=== PATIENT | female | born 1970 ===

== ENCOUNTER 2025-05-11 16:36 | Inpatient (IN) | payer OTHER, SELFPAY ==
--- OUTSIDE RECORDS SUMMARY | 2025-05-11 17:06 | XMS_ITS | Encounter Summary ---
Author Organization [facility] Address [address] [place] [address] Care Team Providers Care Farmer General Name Role Phone Bijan Vasquez DO Primary Care Provider [phone] Encounter Details Date Type Department Care Team (Late st Contact Info) Description 04/24/2022 Lab Requisition [address] [id number] Shirley Daniel NP [address] [place] [address] Bipolar disorder, current episode manic severe with psychotic features (HCC) Social History Tobacco Use Types Packs/Day Years Used Date Smoking Tobacco: Never Assessed Comments Unknown Sex and Gender Information Value Date Recorded Sex Assigned at Not on file Legal Sex Female 9:49 AM EDT Gender Identity Not on file Sexual Orientation Not on file documented as of this encounter Plan of Treatment Not on file documented as of this encounter Procedures Procedure Name Priority Date/Time Associated Diagnosis Comments TSH WITHOUT REFLEX Routine 04/24/2022 6: 50 AM EDT LIPID PROFILE, REFLEX DIRECT LDL Routine 04/24/2022 6:50 AM EDT MANUAL DIFFERENTIAL Routine 04/24/2022 6 :50 AM EDT Bipolar disorder, current episode manic severe with psychotic features (HCC) [ICD-10-CM] CBC AND AUTO DIFFERENTIAL Routine 04/24/2022 6:50 AM EDT Bipolar disorder, current episode manic severe with psychotic features (HCC) [ICD-10-CM] HEMOGLOBIN A1C Routine 04/24/2022 6:50 AM EDT VALPROIC ACID LEVEL Routine 04/24/2022 6 :50 AM EDT COMPREHENSIVE METABOLIC PANEL Routine 04/24/2022 6:50 AM EDT documented in this encounter Results * (ABNORMAL) Manual Differential (04/24/2022 6:50 AM EDT) [facility] WBC 5.7 10*3/ L 04/24/2022 1:55 PM EDT [facility] Neut % 31(L) 40 - 85 % 04/24/2022 1:55 PM EDT [facility] Lymph % 62(H) 15 - 45 % 04/24/2022 1:55 PM EDT [facility] [place] % 5 0 - 12 % 04/24/2022 1:55 PM EDT [facility] Eos % 2 0 - 7 % 04/24/2022 1:55 PM EDT [facility] Total Cells Count 100 04/24/2022 1:55 PM EDT [facility] RBC Morphology Normal Normal 04/24/2022 1:55 PM EDT [facility] Platelet Estimate Normal Normal 04/24/2022 1:55 PM EDT [facility] Blood specimen (specimen) Venipuncture / Unknown 04/24/2022 6:50 AM EDT 04/24/2022 9:45 AM EDT us Shirley Daniel [employer] LAB BLOOD ORDERABLES Final Re sult [facility] [address] [place] [address] * (ABNORMAL) Lipid profile, reflex direct LDL (04/24/2022 6:50 AM EDT) [facility] Cholesterol 176 <200 mg/dL 04/24/2022 10:57 AM EDT [facility] Triglycerides 98 <150 mg/dL 04/24/2022 10:57 AM EDT [facility] HDL 51.6(L) >=60.0 mg/dL 04/24/2022 10:57 AM EDT [facility] LDL Calculated 105(H) 0 - 100 mg/dL 04/24/2022 10:57 AM EDT [facility] Cardiac Risk Factor 3.4 0.0 - 4.4 04/24/2022 10:57 AM EDT [facility] Blood specimen (specimen) Venipuncture / Unknown 04/24/2022 6:50 AM EDT 04/24/2022 9:45 AM EDT Narrative [facility] - 04/24/2022 10:57 AM EDT Cardiac Risk Factor: Males Females 2x Average Risk 9.6 7.1 3x Average Risk 23.4 11.0 Reference range has been changed as of 05/08/2020. Private Practice [employer] LAB BLOOD ORDERABLES Final Re sult Performing Organization Address [facility] Co de Phone Number [facility] [address] [place] [phone] * Hemoglobin A1c (04/24/2022 6:50 AM EDT) Hemoglobin A1C 5.4 4.0 - 6.0 % 04/24/2022 12:48 PM EDT [facility] Estimated Average Glucose eAG 108.3 85.0 - 126.0 mg/dL 04/24/2022 12:48 PM EDT [facility] Blood specimen (specimen) Venipuncture / Unknown 04/24/2022 6:50 AM EDT 04/24/2022 9:45 AM EDT Private Practice [employer] LAB BLOOD ORDERABLES Final Re sult Performing Organization Address [facility] Co de Phone Number [facility] [address] [place] [phone] * TSH Without Reflex (04/24/2022 6:50 AM EDT) TSH 2.207 0.340 - 4.820 uIU/mL 04/24/2022 10:57 AM EDT [facility] Blood specimen (specimen) Venipuncture / Unknown 04/24/2022 6:50 AM EDT 04/24/2022 9:45 AM EDT Narrative [facility] - 04/24/2022 10:57 AM EDT Reference range has been changed as of 05/08/2020. us Shirley Nagycoby [employer] LAB BLOOD ORDERABLES Final Re sult [facility] [address] [place] [address] * Comprehensive metabolic panel (04/24/2022 6:50 AM EDT) Sodium 142 136 - 145 mEq/L 04/24/2022 10:57 AM EDT [facility] Potassium 4.8 3.5 - 5.1 mEq/L 04/24/2022 10:57 AM EDT [facility] Chloride 106 98 - 107 mEq/L 04/24/2022 10:57 AM EDT [facility] CO2 31 20 - 31 mEq/L 04/24/2022 10:57 AM EDT [facility] Anion Gap 5 4 - 15 mEq/L 04/24/2022 10:57 AM EDT [facility] Glucose 74 70 - 100 mg/dL 04/24/2022 10:57 AM EDT [facility] Creatinine 0.80 0.50 - 1.00 mg/dL 04/24/2022 10:57 AM EDT [facility] eGFR (Female) >60 60 - 115 mL/min 04/24/2022 10:57 AM EDT [facility] BUN 20 9 - 23 mg/dL 04/24/2022 10:57 AM EDT [facility] Calcium 9.6 8.7 - 10.4 mg/dL 04/24/2022 10:57 AM EDT [facility] Total Protein 5.9 5.7 - 8.2 g/dL 04/24/2022 10:57 AM EDT [facility] Albumin 3.9 3.2 - 4.8 g/dL 04/24/2022 10:57 AM EDT [facility] A/G Ratio 2.0 1.0 - 2.3 04/24/2022 10:57 AM EDT [facility] Total Bilirubin 0.2 0.2 - 1.0 mg/dL 04/24/2022 10:57 AM EDT [facility] AST 22 13 - 40 U/L 04/24/2022 10:57 AM EDT [facility] Alkaline Phosphatase 75 46 - 116 IU/L 04/24/2022 10:57 AM EDT [facility] ALT 21 7 - 40 U/L 04/24/2022 10:57 AM EDT [facility] Blood specimen (specimen) Venipuncture / Unknown 04/24/2022 6:50 AM EDT 04/24/2022 9:45 AM EDT Narrative [facility] - 04/24/2022 10:57 AM EDT Reference range has been changed as of 05/08/2020. us Shirley Nagyx [employer] LAB BLOOD ORDERABLES Final Re sult Performing Organization Address City/[facility]/ZIP Co de Phone Number [facility] [address] [place] [address] * Valproic Acid Level (04/24/2022 6:50 AM EDT) Valproic Acid 70.6 50.0 - 100.0 ug/mL 04/24/2022 2:52 PM EDT [facility] Blood specimen (specimen) Venipuncture / Unknown 04/24/2022 6:50 AM EDT 04/24/2022 9:45 AM EDT [facility] - 04/24/2022 2:52 PM EDT Reference range has been changed as of 05/08/2020. us Melady Genereux [employer] LAB BLOOD ORDERABLES Final Re sult [facility] [address] [place] [address] * CBC and Auto Differential (04/24/2022 6:50 AM EDT) WBC 5.7 4.8 - 11.2 10*3/ L 04/24/2022 10:52 AM EDT [facility] RBC 4.03 3.60 - 5.40 10*6/ L 04/24/2022 10:52 AM EDT [facility] HGB 12.4 12.0 - 15.8 g/dL 04/24/2022 10:52 AM EDT [facility] HCT 37.3 36.0 - 48.0 % 04/24/2022 10:52 AM EDT [facility] MCV 92.6 82.0 - 98.0 fL 04/24/2022 10:52 AM EDT [facility] MCH 30.8 27.0 - 35.0 pg 04/24/2022 10:52 AM EDT [facility] MCHC 33.2 32.0 - 37.0 g/dL 04/24/2022 10:52 AM EDT [facility] RDW 13.6 12.0 - 15.0 % 04/24/2022 10:52 AM EDT [facility] PLT 186 150 - 400 10*3/ L 04/24/2022 10:52 AM EDT [facility] MPV 9.4 7.0 - 14.0 fL 04/24/2022 10:52 AM EDT [facility] NRBC% 0 0 /100 WBC /100 WBC 04/24/2022 10:52 AM EDT [facility] Add Manual Diff Yes Per Protocol 04/24/2022 10:52 AM EDT [facility] Blood specimen (specimen) Venipuncture / Unknown 04/24/2022 6:50 AM EDT 04/24/2022 9:45 AM EDT us Shirley Daniel [employer] LAB BLOOD ORDERABLES Final Re sult [facility] [address] [place] [address] documented in this encounter Visit Diagnoses Diagnosis Bipolar disorder, current episode manic severe with psychotic features (HCC) documented in this encounter Care Teams Farmer General Relationship Specialty Start Date End Date Bijan Vasquez DO [address] [place] [address] PCP - General Psychiatry 03/24/22 documented as of this encounter
--- OUTSIDE RECORDS SUMMARY | 2025-05-11 17:06 | XMS_ITS | Patient Health Record ---
Author Organization [facility] [address] [place] [address] Location Address [address] [place] [id number] Care Team Providers Care Theater Teacher Name Role Phone Tej GALARZA, [facility] Primary Care Provider Unava ilable Reason For Referral No Information Problems Problem Type SNOMED Code ICD Code Onset Dates Problem Status W/U Status Risk Notes Problem Migraine with aura (5405819) Migraine with aura (346.0) 04/24/2015 Active confirmed Problem Seizure (36355584) Unspecified convulsions (R56.9) 04/24/2015 Active confirmed Plan Of Treatment No Information Insurance Providers Payer Name Payer Address Payer Phone Subscriber Number Group Number Insured Name Patient Relationship to Insured Coverage Start Date Coverage End Date [facility]/ [facility] [address] [address] [place] [phone] [id number] Fabiola Peck Self - patient is the insured
--- OUTSIDE RECORDS SUMMARY | 2025-05-11 17:06 | XMS_ITS | Encounter Summary ---
Author Organization [facility] Address [address] [place] [address] Care Team Providers Care Oceanographer Assistant Name Role Phone Bijan Vasquez DO Primary Care Provider Encounter Details Date Type Department Care Team (Late st Contact Info) Description 03/24/2022 Lab Requisition [address] [phone] Bijan Vasquez DO [address] [place] [id number] Illness, unspecified Social History Tobacco Use Types Packs/Day Years [...] Procedure Name Priority Date/Time Associated Diagnosis Comments MANUAL DIFFERENTIAL Routine 03/24/2022 6:25 AM EDT Illness, unspecified CBC AND AUTO DIFFERENTIAL Routine 03/24/2022 6:25 AM EDT Illness, unspecified VALPROIC ACID LEVEL Routine 03/24/2022 6 :25 AM EDT Illness, unspecified COMPREHENSIVE METABOLIC PANEL Routine 03/24/2022 6:25 AM EDT Illness, unspecified documented in this encounter Results * (ABNORMAL) Manual Differential (03/24/2022 6:25 AM EDT) WBC 6.5 10*3/ L 03/24/2022 1:16 PM EDT [facility] Neut % 30(L) 40 - 85 % 03/24/2022 1:16 PM EDT [facility] Lymph % 62(H) 15 - 45 % 03/24/2022 1:16 PM EDT [facility] [place] % 8 0 - 12 % 03/24/2022 1:16 PM EDT [facility] Total Cells Count 100 03/24/2022 1:16 PM EDT [facility] RBC Morphology Normal Normal 03/24/2022 1:16 PM EDT [facility] Platelet Estimate Normal Normal 03/24/2022 1:16 PM EDT [facility] Blood specimen (specimen) Venipuncture / Unknown 03/24/2022 6:25 AM EDT 03/24/2022 9:50 AM EDT us Bijan Vasquez DO LAB BLOOD ORDERABLES Final R esult Performing Organization Address City/State/[facility] Co de Phone Number [facility] [address] [place] [phone] * CBC and Auto Differential (03/24/2022 6:25 AM EDT) WBC 6.5 4.8 - 11.2 10*3/ L 03/24/2022 10:27 AM EDT [facility] RBC 4.35 3.60 - 5.40 10*6/ L 03/24/2022 10:27 AM EDT [facility] HGB 13.7 12.0 - 15.8 g/dL 03/24/2022 10:27 AM EDT [facility] HCT 40.5 36.0 - 48.0 % 03/24/2022 10:27 AM EDT [facility] MCV 93.1 82.0 - 98.0 fL 03/24/2022 10:27 AM EDT [facility] MCH 31.4 27.0 - 35.0 pg 03/24/2022 10:27 AM EDT [facility] MCHC 33.8 32.0 - 37.0 g/dL 03/24/2022 10:27 AM EDT [facility] RDW 14.1 12.0 - 15.0 % 03/24/2022 10:27 AM EDT [facility] PLT 238 150 - 400 10*3/ L 03/24/2022 10:27 AM EDT [facility] MPV 8.4 7.0 - 14.0 fL 03/24/2022 10:27 AM EDT [facility] NRBC% 0 0 /100 WBC /100 WBC 03/24/2022 10:27 AM EDT [facility] Add Manual Diff Yes Per Protocol 03/24/2022 10:27 AM EDT [facility] Blood specimen (specimen) Venipuncture / Unknown 03/24/2022 6:25 AM EDT 03/24/2022 9:50 AM EDT [facility] Arminda Rosedale DO LAB BLOOD ORDERABLES Final R [facility] Performing Organization Address [facility] de Phone Number [facility] [address] [place] [phone] * Valproic Acid Level (03/24/2022 6:25 AM EDT) Valproic Acid 77.7 50.0 - 100.0 ug/mL 03/24/2022 10:56 AM EDT [facility] Blood specimen (specimen) Venipuncture / Unknown 03/24/2022 6:25 AM EDT 03/24/2022 9:50 AM EDT Narrative [facility] - 03/24/2022 10:56 AM EDT Reference range has been changed as of 05/08/2020. [facility] LAB BLOOD ORDERABLES Final R [facility] Performing Organization Address City/[facility] Co de Phone Number [facility] [address] [place] [phone] * (ABNORMAL) Comprehensive metabolic panel (03/24/2022 6:25 AM EDT) Sodium 144 136 - 145 mEq/L [facility]2022 [facility] Potassium 4.7 3.5 - 5.1 mEq/L 03/24/2022 10:56 AM EDT [facility] Chloride 109(H) 98 - 107 mEq/L 03/24/2022 10:56 AM EDT [facility] CO2 30 20 - 31 mEq/L 03/24/2022 10:56 AM [facility] Anion Gap 5 4 - 15 mEq/L 03/24/2022 10:56 AM EDT [facility] Glucose 80 70 - 100 mg/dL 03/24/2022 10:56 AM T [facility] Creatinine 0.72 0.50 - 1.00 mg/dL 03/24/2022 10:56 AM T [facility] eGFR >60 60 - 115 mL/min 03/24/2022 10:56 AM [facility] BUN 18 9 - 23 mg/dL 03/24/2022 10:56 AM T [facility] Calcium 9.5 8.7 - 10.4 mg/dL 03/24/2022 10:56 AM T [facility] Total Protein 6.1 5.7 - 8.2 g/dL 03/24/2022 10:56 AM T [facility] Albumin 3.9 3.2 - 4.8 g/dL 03/24/2022 10:56 AM [facility] A/G Ratio 1.8 1.0 - 2.3 03/24/2022 10:56 AM T [facility] Total Bilirubin 0.2 0.2 - 1.0 mg/dL 03/24/2022 10:56 AM [facility] AST 30 13 - 40 U/L 03/24/2022 10:56 AM T [facility] Alkaline Phosphatase 77 46 - 116 IU/L 03/24/2022 10:56 AM T [facility] ALT 31 7 - 40 U/L 03/24/2022 10:56 AM [facility] Blood specimen (specimen) Venipuncture / Unknown 03/24/2022 6:25 AM EDT 03/24/2022 9:50 AM EDT Narrative [facility] - 03/24/2022 10:56 AM EDT Reference range has been changed as of 05/08/2020. Bijan Vasquez DO LAB BLOOD ORDERABLES Final R esult [facility] [address] [place] [address] documented in this encounter Visit Diagnoses Diagnosis Illness, unspecified documented in this encounter Care Teams Oceanographer Assistant Relationship Specialty Start Date End Date Bijan Vasquez DO [address] [place] [phone] PCP - General Psychiatry 03/24/22 documented as of this encounter
--- OUTSIDE RECORDS SUMMARY | 2025-05-11 17:06 | XMS_ITS | Clinical Summary ---
Author Organization [facility] Address [address] [facility] [address] [place] [address] Care Team Providers Care Crisis Intervention Specialist Name Role Phone Osman Jeffery MD Primary Care Provider Allergies No known active allergies Medications No known medications Active Problems No known active problems Encounters Date Type Department Care Team Description 03/18/2025 3:59 AM EDT - 03/18/2025 6:58 AM EDT Emergency [facility] Emergency Department [address] [place] [address] Génesis Smith MD Food poisoning (Primary Dx); Nausea vomiting and diarrhea Discharge Disposition: Home or self care from Last 3 Months Social History Tobacco Use Types Packs/Day Years Used Date Smoking Tobacco: Every Day Cigarettes Smokeless Tobacco: Never Tobacco Cessation:Ready to Q uit: Not Asked; Counseling Given: Not Answered Utilities Answer Date Recorded In the past 12 months has [email or web address], gas, oil, or water [employer] threatened to shut off services in your home? Patient declined 03/18/2025 Overall Financial Resource Strain (CARDIA) Answe r Date Recorded How hard is it for you to pa y for the very basics like food, housing, medical care, and heating? Patient declined 03/18/2025 Hunger Vital Sign Answer Date Recorded Within the past 12 months, y ou worried that your food would run out before you got the money to buy more. Patient declined Ran Out of Food in the Last Year Not on file 03/18/2025 PRAPARE - Transportation Answer Date Re corded In the past 12 months, has l ack of transportation kept you from medical appointments or from getting medications? Patient declined 03/18/2025 In the past 12 months, has l ack of transportation kept you from meetings, work, or from getting things needed for daily living? Patient declined 03/18/2025 Housing Stability Vital Sign Answer Arsh e Recorded Unable to Pay for Housing in the Last Year Not o n file 03/18/2025 Number of Times Moved in the Last Year Not on fi le 03/18/2025 At any time in the past 12 m [facility], were you homeless or living in a correction (including now)? Patient declined 03/18/2025 Comments Unknown Sex and Gender Information Value Date Recorded Sex Assigned at Female 08/15/2024 3:57 AM EST Legal Sex Female 3:51 AM EST Gender Identity Female 08/15/2024 3:57 AM EST Sexual Orientation Not on file Last Filed Vital Signs Vital Sign Reading Time Taken Comments Blood Pressure 99/63 03/18/2025 1:16 AM EDT Pulse 82 03/18/2025 1:16 AM EDT Temperature 35.9 C (96.6 F) 03/18/2025 1:16 AM EDT Respiratory Rate 16 03/18/2025 1:16 AM EDT Oxygen Saturation 97% 03/18/2025 1:16 AM EDT Inhaled Oxygen Concentration - - Weight 54.4 kg (120 lb) 08/15/2024 4:05 AM EST Height 165.1 cm (5' 5 ) 08/15/2024 4:05 AM EST Body Mass Index 19.97 08/15/2024 4:05 AM EST Plan of Treatment Health Maintenance Due Date Last Done Comments CT Colonography 1969 Colonoscopy 1969 Colorectal Cancer Screening 1969 FIT-DNA 1969 FIT 1969 FOBT 1969 HIV Screening 1969 Sigmoidoscopy 1969 Tobacco Cessation Counseling 1969 MMR Vaccines (1 of 1 - Stand gela series) 1970 Hepatitis C Screening 1987 DTaP/Tdap/Td Vaccines (1 - Tdap) 1988 Hepatitis A Vaccines (1 of 2 - Risk 2-dose series) 1988 Hepatitis B Vaccines (1 of 3 - 19+ 3-dose series) 1988 Pneumococcal Vaccine: 50+ Ye ars (1 of 2 - PCV) 1988 Pap Smear 1990 Cervical Cancer Screening 1999 HPV/Cotest 1999 Mammogram 2009 Zoster Vaccines (1 of 2) 2019 Depression Screening 08/10/2024 COVID-19 Vaccine (1 - 2023-2 5 season) 2025 Influenza Vaccine (#1) 2025 Lipid Panel 04/24/2027 04/24/2022 HIB Vaccines Aged Out No longer eligi ble based on patient's age to complete this topic HPV Vaccines Aged Out No longer eligi ble based on patient's age to complete this topic IPV Vaccines Aged Out No longer eligi ble based on patient's age to complete this topic Meningococcal B Vaccine Aged Out No l onger eligible based on patient's age to complete this topic Meningococcal Vaccine Aged Out No lonnie lonny eligible based on patient's age to complete this topic Rotavirus Vaccines Aged Out No longer eligible based on patient's age to complete this topic Procedures Procedure Name Priority Date/Time Associated Diagnosis Comments RBC MORPHOLOGY STAT 03/18/2025 5:30 AM EDT CBC WITH DIFFERENTIAL STAT 03/18/2025 5:30 AM EDT COMPREHENSIVE METABOLIC PANEL STAT 03/18/2025 5:30 AM EDT CBC W/DIFF STAT 03/18/2025 5:30 AM EDT from Last 3 Months Results * (ABNORMAL) CBC w/ Differential (03/18/2025 5:30 AM EDT) WBC 8.6 4.0 - 11.0 K/uL 03/18/2025 6:10 AM EDT [facility] RBC 4.23 3.70 - 5.20 M/uL 03/18/2025 6:10 AM EDT [facility] Hemoglobin 13.0 11.0 - 16.0 g/dL 03/18/2025 6:10 AM EDT [facility] Hematocrit 38.8 32.0 - 47.0 % 03/18/2025 6:10 AM EDT [facility] MCV 91.7 80.0 - 100.0 fL 03/18/2025 6:10 AM EDT [facility] MCH 30.7 26.0 - 34.0 pg 03/18/2025 6:10 AM EDT [facility] MCHC 33.5 31.0 - 37.0 g/dL 03/18/2025 6:10 AM EDT [facility] RDW-CV 14.2 11.5 - 14.5 % 03/18/2025 6:10 AM EDT [facility] RDW-SD 47.9 35.0 - 51.0 fL 03/18/2025 6:10 AM EDT [facility] Platelets 293 150 - 400 K/uL 03/18/2025 6:10 AM EDT [facility] MPV 9.6 9.1 - 12.4 fL 03/18/2025 6:10 AM EDT [facility] Neutrophil % 36.4 % 03/18/2025 6:10 AM EDT [facility] Lymphocyte % 51.1 % 03/18/2025 6:10 AM EDT [facility] Monocytes % 7.5 % 03/18/2025 6:10 AM EDT [facility] Eosinophils % 3.9 % 03/18/2025 6:10 AM EDT [facility] Basophils % 0.9 % 03/18/2025 6:10 AM EDT [facility] Immature Granulocytes % 0.2 % 03/18/2025 6:10 AM EDT [facility] NRBC % 0.0 0.0 - 0.0 % 03/18/2025 6:10 AM EDT [facility] Neutrophils Absolute 3.13 1.50 - 7.95 K/uL 03/18/2025 6:10 AM T [facility] Lymphocytes Absolute 4.41(H) 0.70 - 4.00 K/uL 03/18/2025 6:10 AM EDT [facility] Monocytes Absolute 0.65 0.36 - 0.77 K/uL 03/18/2025 6:10 AM EDT [facility] Eosinophils Absolute 0.34 0.00 - 0.50 K/uL 03/18/2025 6:10 AM EDT [facility] Basophils Absolute 0.08 0.00 - 0.22 K/uL 03/18/2025 6:10 AM EDT [facility] Immature Granulocytes Absolute 0.02 0.00 - 0.10 K/uL 03/18/2025 6:10 AM EDT [facility] NRBC Absolute 0.00 0.00 - 2.00 K/uL 03/18/2025 6:10 AM EDT [facility] Blood Venous blood specimen / Unknown Venipuncture / Unknown 03/18/2025 5:30 AM EDT 03/18/2025 5:33 AM EDT Génesis Smith MD LAB BLOOD ORDERABLES Final Result Performing Organization Address City/[facility]/ZIP Co de Phone Number [facility] [address] [place] [address], * (ABNORMAL) RBC Morphology (03/18/2025 5:30 AM EDT) Pathologist [facility] RBC Morphology See Indices(A ) Normal, Not Performed 03/18/2025 6:10 AM EDT [facility] Blood Venous blood specimen / Unknown Venipuncture / Unknown 03/18/2025 5:30 AM EDT 03/18/2025 5:33 AM EDT Génesis Smith MD LAB BLOOD ORDERABLES Final Result Performing Organization Address City/[facility] Co de Phone Number [facility] [address] [place] [address], * Comprehensive metabolic panel (03/18/2025 5:30 AM EDT) Sodium 139 135 - 146 mmol/L 03/18/2025 6:12 AM EDT [facility] Potassium 4.1 3.6 - 5.2 mmol/L 03/18/2025 6:12 AM EDT [facility] Chloride 107 98 - 110 mmol/L 03/18/2025 6:12 AM EDT [facility] CO2 (Bicarbonate) 21 20 - 32 mmol/L 03/18/2025 6:12 AM EDT [facility] Anion Gap 11 3 - 14 mmol/L 03/18/2025 6:12 AM EDT [facility] BUN 16 6 - 24 mg/dL 03/18/2025 6:12 AM EDT [facility] Creatinine 0.74 0.55 - 1.30 mg/dL 03/18/2025 6:12 AM EDT [facility] eGFRcr 95 >=60 mL/min/1. 73m*2 03/18/2025 6:12 AM EDT [facility] Comment:Calculated using CKD -EPI 2020 creatinine equation. Glucose 89 70 - 139 mg/dL 03/18/2025 6:12 AM EDT [facility] Fasting? Unknown [facility] SANDRA INFINITY 03/18/2025 6:12 AM EDT [facility] Calcium 9.4 8.5 - 10.5 mg/dL 03/18/2025 6:12 AM EDT [facility] AST 34 6 - 42 U/L 03/18/2025 6:12 AM EDT [facility] ALT 21 0 - 55 U/L 03/18/2025 6:12 AM EDT [facility] Alkaline phosphatase 90 30 - 130 U/L 03/18/2025 6:12 AM EDT [facility] Protein, total 6.5 6.0 - 8.4 g/dL 03/18/2025 6:12 AM EDT [facility] Albumin 4.0 3.2 - 5.0 g/dL 03/18/2025 6:12 AM EDT [facility] Bilirubin, total 0.2 0.2 - 1.2 mg/dL 03/18/2025 6:12 AM T [facility] Blood Venous blood specimen / Unknown Venipuncture / Unknown 03/18/2025 5:30 AM EDT 03/18/2025 5:33 AM EDT us Génesis Smith MD LAB BLOOD ORDERABLES Final Result [facility] [address] [place] [address], from Last 3 Months Insurance [facility] [place] [id number] Care Teams Crisis Intervention Specialist Relationship Specialty Start Date End Date Osman Jeffery MD [facility] [address] [place] [address] PCP - General Engineering Agent 08/15/24
--- OUTSIDE RECORDS SUMMARY | 2025-05-11 17:06 | XMS_ITS | Encounter Summary ---
Author Organization [facility] Address [address] [place] [address] Care Team Providers Care Optical Instrument Specialist Name Role Phone Bijan Vasquez DO Primary Care Provider [phone] Encounter Details Date Type Department Care Team (Late st Contact Info) Description 04/24/2022 Lab Requisition [address] [id number] Shirley Daniel NP [address] [place] [address] Bipolar disorder, current episode manic severe with psychotic features (HCC) Social History Tobacco Use Types Packs/Day Years Used Date Smoking Tobacco: Never Assessed Comments Unknown Sex and Gender Information Value Date Recorded Sex Assigned at Not on file Legal Sex Female 9:49 AM EDT Gender Identity Not on file Sexual Orientation Not on file documented as of this encounter Plan of Treatment Scheduled Orders Name Type Priority Associated Diagnoses Orde r Schedule CBC and Auto Differential Lab Routine Bipolar disorder, current episode manic severe with psychotic features (HCC) Ordered: 04/24/2022 Valproic Acid Level Lab Routine Order ed: 04/24/2022 Comprehensive metabolic panel Lab Routine Ordered: 022 TSH Without Reflex Lab Routine Ordere d: 04/24/2022 Hemoglobin A1c Lab Routine Ordered: 0 04/24/2022 Lipid profile, reflex direct LDL Lab Routine Ordered: 022 documented as of this encounter Visit Diagnoses Diagnosis Bipolar disorder, current episode manic severe with psychotic features (HCC) documented in this encounter Care Teams Optical Instrument Specialist Relationship Specialty Start Date End Date Bijan Vasquez DO [address] [place] [address] PCP - General Psychiatry 03/24/22 documented as of this encounter
--- OUTSIDE RECORDS SUMMARY | 2025-05-11 17:06 | XMS_ITS | Clinical Summary ---
Author Organization [facility] Address [address] [place] [address] Care Team Providers Care Distribution Lineman Name Role Phone Bijan Vasquez DO Primary Care Provider [phone] Social History Tobacco Use Types Packs/Day Years Used Date Smoking Tobacco: Never Assessed Comments Unknown Sex and Gender Information Value Date Recorded Sex Assigned at Not on file Legal Sex Female 9:49 AM EDT Gender Identity Not on file Sexual Orientation Not on file Plan of Treatment Not on file Care Teams Distribution Lineman Relationship Specialty Start Date End Date Bijan Vasquez DO [address] [place] [id number] PCP - General Psychiatry 03/24/22
[2025-05-11 17:14] VITALS: BMI 16.7
[2025-05-11 17:19] VITALS: BP 122/78; PULSE 88; RESP 16; TEMP 36.1; O2SAT 97
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
[2025-05-12 08:00] VITALS: BP 117/60; PULSE 65; RESP 16; TEMP 35.6; O2SAT 95
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
[2025-05-12 20:00] VITALS: BP 125/70; PULSE 73; RESP 16; TEMP 35.8; O2SAT 98
[2025-05-13 08:00] VITALS: RESP 18
[2025-05-13 08:27] LABS: Hemoglobin A1C 131.0055 umol/L; Total Hemoglobin (HGBA1C) 3502.2637 umol/L
[2025-05-13 08:35] LABS: Alanine Aminotransferase 30 U/L (0-31); Albumin Level 4.0 g/dL (3.5-5.0); Alkaline Phosphatase 59 U/L (39-117); Anion Gap 10 (12-20); Aspartate Amino Transferase 47 U/L (5-31); Blood Urea Nitrogen 25 mg/dL (9-16); Calcium 9.5 mg/dL (8.4-10.2); Carbon Dioxide 26 mmol/L (22-29); Chloride 106 mmol/L (96-108); Cholesterol 201 mg/dL (<200); Creatinine Clr Calc Pharmacy 66.3; Estimated Glomerular Filt Rate > 60; HDL Cholesterol 48 mg/dL (>40); Potassium 4.7 mmol/L (3.3-5.1); Sodium 137 mmol/L (135-145); Total Protein 6.2 g/dL (6.5-8.0); Triglycerides 145 mg/dL (<150)
[2025-05-13 08:54] LABS: Free T4 (Free Thyroxine) 1.09 ng/dL (0.71-1.85); Thyroid Stimulating Hormone 1.67 uIU/mL (0.32-4.0)
[2025-05-13] MEDS: Nicotine 21 MG PATCH.TD24 TRANSDERMA (09:36)
--- NOTE | 2025-05-13 16:12 | HO.PSYCHPN ---
Subjective Subjective Date of Service: 05/13/25 Reason For Visit: Manic behaviors Subjective Notes: Conditional Voluntary Healthcare Proxy: No Guardianship: No Medical Problems Affecting Mental Status: No Interim History: Medical record and nursing notes reviewed; case discussed during rounds with team/nursing staff, and met with patient for supportive therapy/psychoeducation, as well as medication management. Meet with patient to discuss medication option for mood- anxiety. She declines all options. Do not like antihistamine Hydroxyzine for anxiety. Do not want mood stabilizer or antipsychotics for mood/severe anxiety. She does not believe that she has mental illness. 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 Report that mom and sister also wanted her to take Haldol, Seroquel and other meds that she do not need to take I never on medication. I do not need meds . Report she does not drink much and not an alcoholic. Mostly seeking for benzodiazepam. Patient does not actually score on CIWA or Ativan PRN except for irritable and agitation. Patient is irritable, loud, irritable and irrational. Poor insight and judgment, is disruptive by being loud in the queen. However, slept well Medication Compliance: No Side effects from medications: No Attending Groups: No Review of Systems Acute medical concerns: No Medical Review of Systems: unchanged Review of Systems Review of Systems Constitutional: Denies fatigue and Denies fever(s) Cardiovascular: Denies chest pain and Denies dyspnea Respiratory: Denies dyspnea Gastrointestinal: Denies abdominal pain Psychiatric: denies suicidal ideation Endocrine: Denies fatigue Yes all other systems are reviewed and are negative Mental Status Exam Mental Status Exam Patient Appearance: Fatigued and Appropriate Patient Orientation: Person, Place, Time and Situation Level of Consciousness: Alert Patient Behavior: Talkative, Suspicious (fears commitment), Anxious, Fearful, Resistive to Care, Distractible, Good Eye Contact and Crying Mood Description: Labile Affect Description: Labile Patient Cognition Impaired: No Ability to Follow Directions: Fair Speech Pattern: Spontaneous Speech and Rapid Memory Description: Episodic Impaired Hallucinations: None (denies) Delusions: Present Perceptual Disturbances: Depersonalization and Derealization Thought Process: Illogical, Rumination and Goal Oriented Thought Content: positive for Goal Oriented, positive for Perseveration and positive for Suicidal Ideation (denies) Depressive Symptoms: Increased Irritability and Thoughts of /Suicide (denies) Judgement: Poor Diagnostics Vital Signs (24Hr): Vital Signs - 24 hr 05/12/25 20:00 05/13/25 08:00 Temperature 96.4 F L Pulse Rate 73 Respiratory Rate 16 18 Blood Pressure 125/70 Pulse Oximetry 98 Oxygen Delivery Method Room Air BMI result Body Mass Index 16.7 Labs 05/13/25 07:53 Labs: Laboratory Results - last 48 hr 05/13/25 07:53 Sodium 137 Potassium 4.7 Chloride 106 Carbon Dioxide 26 Anion Gap 10 L BUN 25 H Creatinine 0.68 Estim Creat Clear Calc 66.3 Estimated GFR > 60 Random Glucose 100 Estimat Average Glucose 114 Hemoglobin A1c % 5.6 Calcium 9.5 Total Bilirubin 0.1 AST 47 H ALT 30 Alkaline Phosphatase 59 Total Protein 6.2 L Albumin 4.0 Triglycerides 145 Cholesterol 201 H LDL Cholesterol, Calc 124 H HDL Cholesterol 48 TSH 1.67 Free T4 1.09 Medications Medications Current Medications Acetaminophen (Acetaminophen 325 Mg Tablet) 650 mg PO Q6H PRN PRN Reason: Headache/Pain, Scale 1-10 Last Admin: 05/13/25 10:41 Dose: 650 mg Al Hydroxide/Mg Hydroxide (Magnesium Hydrox/Alum Hydrox 30 Ml Oral.Susp) 30 ml PO Q6H PRN PRN Reason: Heartburn/Nausea Amoxicillin (Amoxicillin 500 Mg Capsule) 500 mg PO BID@0900,2100 [facility] Last Admin: 05/13/25 11:12 Dose: 500 mg Fluticasone Propionate (Fluticasone Propionate Nasal 16 Gm [place]) 2 spray NOSTRIL-B DAILY [facility] Last Admin: 05/13/25 08:56 Dose: 2 spray Hydroxyzine HCl (Hydroxyzine Hcl 25 Mg Tablet) 25 mg PO Q6H PRN PRN Reason: mild anxiety Last Admin: 05/13/25 03:41 Dose: 25 mg Ibuprofen (Ibuprofen 400 Mg Tablet) 400 mg PO Q4H PRN PRN Reason: ear pain Last Admin: 05/13/25 14:41 Dose: 400 mg Loratadine (Loratadine 10 Mg Tablet) 10 mg PO DAILY [facility] Last Admin: 05/13/25 08:56 Dose: 10 mg Lorazepam (Lorazepam 0.5 Mg Tablet) 0.5 mg PO Q8H PRN PRN Reason: severe anxiety Last Admin: 05/13/25 11:12 Dose: 0.5 mg Magnesium Hydroxide (Milk Of Magnesia 30 Ml Oral.Susp) 30 ml PO DAILY PRN PRN Reason: Constipation Melatonin (Melatonin 3 Mg Tablet) 9 mg PO BEDTIME [facility] Last Admin: 05/12/25 21:15 Dose: 9 mg Nicotine (Nicotine 21 Mg Patch.Td24) 21 mg TRANSDERMA DAILY [facility] Last Admin: 05/13/25 09:36 Dose: 21 mg Nicotine Polacrilex (Nicotine Polacrilex 2 Mg Gum) 2 mg BUCCAL Q2H PRN PRN Reason: Nicotine Cravings Ondansetron HCl (Ondansetron Odt 4 Mg Tab.Rapdis) 4 mg TRANSLINGU Q6H PRN PRN Reason: Nausea and Vomiting Last Admin: 05/12/25 09:58 Dose: 4 mg Quetiapine Fumarate (Quetiapine Fumarate 50 Mg Tablet) 50 mg PO BID PRN PRN Reason: agitation/psychosis Quetiapine Fumarate (Quetiapine Fumarate 50 Mg Tablet) 50 mg PO BEDTIME [facility] Quetiapine Fumarate (Quetiapine Fumarate 25 Mg Tablet) 25 mg PO BID@0900,1500 [facility] Last Admin: 05/13/25 14:41 Dose: 25 mg Thiamine HCl (Thiamine Hcl 100 Mg Tablet) 100 mg PO DAILY [facility] Last Admin: 05/13/25 08:56 Dose: 100 mg Trazodone HCl (Trazodone Hcl 50 Mg Tablet) 50 mg PO BEDTIME MRX1 PRN PRN Reason: Insomnia Last Admin: 05/13/25 03:41 Dose: 50 mg Trazodone HCl (Trazodone Hcl 50 Mg Tablet) 50 mg PO BEDTIME [facility] Last Admin: 05/12/25 21:15 Dose: 50 mg Allergies Allergies Allergy/AdvReac Type Severity Reaction Status Date / Time olanzapine (From Zyprexa) Allergy Unknown Verified 05/11/25 17:08 Assessment & Plan Assessment & Plan (1) Bipolar disorder: Status: Acute Code(s): F31.9 - Bipolar disorder, unspecified (2) Left ear pain: Status: Acute Code(s): H92.02 - Otalgia, left ear (3) Anxiety: Status: Acute Code(s): F41.9 - Anxiety disorder, unspecified Plan Admit, CV, 15 minute checks Pt refuses medications except benzodiazepines at this time, Discussed mood stabilizers, declines. ?Vraylar trial Diagnostics as needed Amoxicillin for ear infection Collateral Contacts Encourage full milieu Monitor for possible need for [facility] Discharge planning. 05/13/25: Meet with patient to discuss medication option for mood- anxiety. She declines all options. Do not like antihistamine Hydroxyzine for anxiety. Do not want mood stabilizer or antipsychotics for mood/severe anxiety. She does not believe that she has mental illness. 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 Report that mom and sister also wanted her to take Haldol, Seroquel and other meds that she do not need to take I never on medication. I do not need meds . Report she does not drink much and not an alcoholic. Mostly seeking for benzodiazepam. Patient does not actually score on CIWA or Ativan PRN except for irritable and agitation. Patient is irritable, loud, irritable and irrational, labile, manic. Poor insight and judgment, is disruptive by being loud in the [place]. However, slept well Will order Seroquel ( scheduled) patient potential will refuse it.: Seroquel 25 BID at 0900 and 1500, and Seroquel 50mg at HS with PRN available Ativan 0.5mg q8hrs PRN for severe anxiety. CIWA and ATIVAN PRN were discontinued. No score. Patient educated on: diagnosis, medication risk/benefits, substance abuse and therapeutic strategies Informed Consent: further education needed Reason for continued inpatient stay Substantial Risk for: med/psych decompensation Time Spent With Patient Time: Total time managing care of this patient today ____ minutes.
[2025-05-13 19:42] VITALS: BP 93/54; PULSE 83; RESP 16; TEMP 36; O2SAT 97
[2025-05-14 07:43] VITALS: RESP 18
[2025-05-14] MEDS: Nicotine 21 MG PATCH.TD24 TRANSDERMA (11:34)
--- NOTE | 2025-05-14 18:14 | P.PNPSI_ITS ---
Subjective Subjective Date of Service: 05/14/25 Reason For Visit: Manic behaviors Subjective Notes: Conditional Voluntary Healthcare Proxy: No Guardianship: No Medical Problems Affecting Mental Status: No Interim History: Medical record and nursing notes reviewed; case discussed during rounds with team/nursing staff, and met with patient for supportive therapy/psychoeducation, as well as medication management. Slept 7 hours, compliant with medications, started taking Seroquel plus the p.r.n., mood is much calmer, less labile. Denies anxiety and depression. Denies safety concerns. Napping on and off, but more visible and watching TV quietly. Medication Compliance: Yes Side effects from medications: No Attending Groups: Intermittent Review of Systems Acute medical concerns: No Medical Review of Systems: unchanged Review of Systems Review of Systems Constitutional: Denies fatigue and Denies fever(s) Cardiovascular: Denies chest pain and Denies dyspnea Respiratory: Denies dyspnea Gastrointestinal: Denies abdominal pain Psychiatric: denies suicidal ideation Endocrine: Denies fatigue Yes all other systems are reviewed and are negative Mental Status Exam Mental Status Exam Patient Appearance: Fatigued and Appropriate Patient Orientation: Person, Place, Time and Situation Level of Consciousness: Alert Patient Behavior: Appropriate, Cooperative, Anxious and Good Eye Contact Mood Description: Calm, Appropriate and Labile (improved ) Affect Description: Labile (Less ) Patient Cognition Impaired: No Ability to Follow Directions: Fair Speech Pattern: Clear and Spontaneous Speech Memory Description: Episodic Impaired Hallucinations: None (denies) Delusions: Present Perceptual Disturbances: Depersonalization and Derealization Thought Process: Intact and Goal Oriented Thought Content: positive for Goal Oriented and positive for Suicidal Ideation (denies) Depressive Symptoms: Increased Irritability (Improved ) and Thoughts of /Suicide (denies) Judgement: Poor Diagnostics Vital Signs (24Hr): Vital Signs - 24 hr 05/13/25 19:42 05/14/25 07:43 Temperature 96.8 F Pulse Rate 83 Respiratory Rate 16 18 Blood Pressure 93/54 L Pulse Oximetry 97 Oxygen Delivery Method Room Air BMI result Body Mass Index 16.7 Labs 05/13/25 07:53 Labs: Laboratory Results - last 48 hr 05/13/25 07:53 Sodium 137 Potassium 4.7 Chloride 106 Carbon Dioxide 26 Anion Gap 10 L BUN 25 H Creatinine 0.68 Estim Creat Clear Calc 66.3 Estimated GFR > 60 Random Glucose 100 Estimat Average Glucose 114 Hemoglobin A1c % 5.6 Calcium 9.5 Total Bilirubin 0.1 AST 47 H ALT 30 Alkaline Phosphatase 59 Total Protein 6.2 L Albumin 4.0 Triglycerides 145 Cholesterol 201 H LDL Cholesterol, Calc 124 H HDL Cholesterol 48 TSH 1.67 Free T4 1.09 Medications Medications Current Medications Acetaminophen (Acetaminophen 325 Mg Tablet) 650 mg PO Q6H PRN PRN Reason: Headache/Pain, Scale 1-10 Last Admin: 05/14/25 15:54 Dose: 650 mg Al Hydroxide/Mg Hydroxide (Magnesium Hydrox/Alum Hydrox 30 Ml Oral.Susp) 30 ml PO Q6H PRN PRN Reason: Heartburn/Nausea Amoxicillin (Amoxicillin 500 Mg Capsule) 500 mg PO BID@0900,2100 [facility] Last Admin: 05/14/25 09:46 Dose: 500 mg Clotrimazole (Clotrimazole 1 % Cream 15 Gm Tube) 1 appl TOPICAL BID [facility]; Protocol Fluticasone Propionate (Fluticasone Propionate Nasal 16 Gm [place]) 2 spray NOSTRIL-B DAILY [facility] Last Admin: 05/14/25 09:46 Dose: 2 spray Hydroxyzine HCl (Hydroxyzine Hcl 25 Mg Tablet) 25 mg PO Q6H PRN PRN Reason: mild anxiety Last Admin: 05/13/25 03:41 Dose: 25 mg Ibuprofen (Ibuprofen 400 Mg Tablet) 400 mg PO Q4H PRN PRN Reason: ear pain Last Admin: 05/14/25 15:53 Dose: 400 mg Loratadine (Loratadine 10 Mg Tablet) 10 mg PO DAILY [facility] Last Admin: 05/14/25 09:50 Dose: Not Given Lorazepam (Lorazepam 0.5 Mg Tablet) 0.5 mg PO Q8H PRN PRN Reason: severe anxiety Last Admin: 05/14/25 11:34 Dose: 0.5 mg Magnesium Hydroxide (Milk Of Magnesia 30 Ml Oral.Susp) 30 ml PO DAILY PRN PRN Reason: Constipation Melatonin (Melatonin 3 Mg Tablet) 9 mg PO BEDTIME [facility] Last Admin: 05/13/25 21:09 Dose: 9 mg Nicotine (Nicotine 21 Mg Patch.Td24) 21 mg TRANSDERMA DAILY [facility] Last Admin: 05/14/25 11:34 Dose: 21 mg Nicotine Polacrilex (Nicotine Polacrilex 2 Mg Gum) 2 mg BUCCAL Q2H PRN PRN Reason: Nicotine Cravings Ondansetron HCl (Ondansetron Odt 4 Mg Tab.Rapdis) 4 mg TRANSLINGU Q6H PRN PRN Reason: Nausea and Vomiting Last Admin: 05/12/25 09:58 Dose: 4 mg Quetiapine Fumarate (Quetiapine Fumarate 50 Mg Tablet) 50 mg PO BID PRN PRN Reason: agitation/psychosis Last Admin: 05/14/25 16:36 Dose: 50 mg Quetiapine Fumarate (Quetiapine Fumarate 50 Mg Tablet) 50 mg PO BEDTIME [facility] Last Admin: 05/13/25 21:21 Dose: 50 mg Quetiapine Fumarate (Quetiapine Fumarate 25 Mg Tablet) 25 mg PO BID@0900,1500 [facility] Last Admin: 05/14/25 15:14 Dose: 25 mg Thiamine HCl (Thiamine Hcl 100 Mg Tablet) 100 mg PO DAILY [facility] Last Admin: 05/14/25 09:46 Dose: 100 mg Trazodone HCl (Trazodone Hcl 50 Mg Tablet) 50 mg PO BEDTIME MRX1 PRN PRN Reason: Insomnia Last Admin: 05/13/25 03:41 Dose: 50 mg Trazodone HCl (Trazodone Hcl 50 Mg Tablet) 50 mg PO BEDTIME [facility] Last Admin: 05/13/25 21:09 Dose: 50 mg Allergies Allergies Allergy/AdvReac Type Severity Reaction Status Date / Time olanzapine (From Zyprexa) Allergy Unknown Verified 05/11/25 17:08 Assessment & Plan Assessment & Plan (1) Bipolar disorder: Status: Acute Code(s): F31.9 - Bipolar disorder, unspecified (2) Left ear pain: Status: Acute Code(s): H92.02 - Otalgia, left ear (3) Anxiety: Status: Acute Code(s): F41.9 - Anxiety disorder, unspecified Plan Admit, CV, 15 minute checks Pt refuses medications except benzodiazepines at this time, Discussed mood stabilizers, declines. ?Vraylar trial Diagnostics as needed Amoxicillin for ear infection Collateral Contacts Encourage full milieu Monitor for possible need for [facility] Discharge planning. 05/13/25: Meet with patient to discuss medication option for mood- anxiety. She declines all options. Do not like antihistamine Hydroxyzine for anxiety. Do not want mood stabilizer or antipsychotics for mood/severe anxiety. She does not believe that she has mental illness. 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 Report that mom and sister also wanted her to take Haldol, Seroquel and other meds that she do not need to take I never on medication. I do not need meds . Report she does not drink much and not an alcoholic. Mostly seeking for benzodiazepam. Patient does not actually score on CIWA or Ativan PRN except for irritable and agitation. Patient is irritable, loud, irritable and irrational, labile, manic. Poor insight and judgment, is disruptive by being loud in the [place]. However, slept well Will order Seroquel ( scheduled) patient potential will refuse it.: Seroquel 25 BID at 0900 and 1500, and Seroquel 50mg at HS with PRN available Ativan 0.5mg q8hrs PRN for severe anxiety. CIWA and ATIVAN PRN were discontinued. No score. 05/14/25: Slept 7 hours, compliant with medications, started taking Seroquel plus the p.r.n., mood is much calmer, less labile. Denies anxiety and depression. Denies safety concerns. Napping on and off, but more visible and watching TV quietly. Patient educated on: diagnosis, medication risk/benefits, substance abuse and therapeutic strategies Informed Consent: understands and further education needed Reason for continued inpatient stay Substantial Risk for: med/psych decompensation Time Spent With Patient Time: Total time managing care of this patient today ____ minutes.
[2025-05-14 20:00] VITALS: BP 92/50; PULSE 67; RESP 18; TEMP 35.9; O2SAT 98
[2025-05-14] MEDS: Clotrimazole 1 % Cream 15 GM TUBE 1 APPL TOPICAL (21:02)
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
[2025-05-15] MEDS: Nicotine 21 MG PATCH.TD24 TRANSDERMA (09:47)
[2025-05-15] MEDS: Divalproex Sodium ER 250 MG TAB.ER.24H PO (15:06)
[2025-05-15 22:08] VITALS: BP 98/52; PULSE 64; RESP 16; TEMP 36.3; O2SAT 98
[2025-05-16 08:00] VITALS: RESP 14
[2025-05-16] MEDS: Nicotine 21 MG PATCH.TD24 TRANSDERMA (11:15)
[2025-05-16 20:00] VITALS: BP 111/51; PULSE 68; RESP 18; TEMP 36.6; O2SAT 98
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
[2025-05-17 20:31] VITALS: BP 108/66; PULSE 70; RESP 18; TEMP 36.2; O2SAT 98
[2025-05-18 07:45] VITALS: BP 102/62; PULSE 56; TEMP 36.4; O2SAT 96
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
[2025-05-18] MEDS: Nicotine 21 MG PATCH.TD24 TRANSDERMA (16:59)
[2025-05-19 08:00] VITALS: RESP 14
[2025-05-19] MEDS: Nicotine 21 MG PATCH.TD24 TRANSDERMA (11:23)
[2025-05-19 19:58] VITALS: BP 107/53; PULSE 70; RESP 15; TEMP 36.6; O2SAT 100
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
[2025-05-20 13:52] LABS: Ammonia 39 umol/L (13-55)
[2025-05-20 14:00] LABS: Alanine Aminotransferase 76 U/L (0-31); Albumin Level 4.4 g/dL (3.5-5.0); Alkaline Phosphatase 67 U/L (39-117); Aspartate Amino Transferase 36 U/L (5-31); Total Protein 6.8 g/dL (6.5-8.0)
[2025-05-20 19:42] VITALS: BP 124/69; PULSE 92; RESP 16; TEMP 36.8; O2SAT 97
[2025-05-21] MEDS: Nicotine 21 MG PATCH.TD24 TRANSDERMA (15:17)
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
[2025-05-21 20:00] VITALS: BP 111/97; PULSE 69; RESP 16; TEMP 36.7; O2SAT 99
--- NOTE | 2025-05-22 03:57 | PC.NURSE ---
At 0330 patient was up using her bathroom and noticed 3 staff members in the hallway. She started yelling at them You woke me up . She then started to make threatening statements to these staff members, claiming I'll report you and have your jobs, then you won't have any money for [place] . The staff members were not being loud at all. However, Fabiola continued to yell and stated I have the right to yell because they woke me up. Patient requested and received Trazadone and Hydroxyzine as prns, effectiveness pending.
[2025-05-22 08:00] VITALS: RESP 18
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
[2025-05-22] MEDS: Nicotine 21 MG PATCH.TD24 TRANSDERMA (15:33)
[2025-05-22 20:00] VITALS: BP 112/68; PULSE 83; RESP 16; TEMP 36.9; O2SAT 97
[2025-05-22] MEDS: Clotrimazole 1 % Cream 15 GM TUBE 1 APPL TOPICAL (20:42)
[2025-05-23 07:58] VITALS: BP 97/54; PULSE 55; TEMP 36.4; O2SAT 95
[2025-05-23] MEDS: Nicotine 21 MG PATCH.TD24 TRANSDERMA (08:50)
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
[2025-05-23 20:00] VITALS: BP 121/60; PULSE 84; RESP 18; TEMP 36.4; O2SAT 98
[2025-05-24 08:00] VITALS: RESP 16
[2025-05-24] MEDS: Nicotine 21 MG PATCH.TD24 TRANSDERMA (09:00)
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
== END 2025-05-24 12:35 | disposition home or self-care (01) | DRG 885 ==
PROVIDERS: Nurse Practitioner Psychiatric/Mental Health; Admitting Provider Psychiatry & Neurology Psychiatry; Visit Provider Psychiatry & Neurology Psychiatry
DX: F31.9 Bipolar disorder, unspecified (principal); Z59.02 Unsheltered homelessness; H92.02 Otalgia, left ear; F17.210 Nicotine dependence, cigarettes, uncomplicated; Z71.6 Tobacco abuse counseling; G89.29 Other chronic pain; F41.9 Anxiety disorder, unspecified; Z79.899 Other long term (current) drug therapy
CPT/HCPCS: 36415; 80053; 80061; 80076; 80164; 82140; 83036; 84439; 84443

== ENCOUNTER → 2025-05-11 16:36 | Outpatient (BNV) | payer OTHER, SELFPAY | PROVIDERS: Admitting Provider Psychiatry & Neurology Psychiatry; Visit Provider Nurse Practitioner Psychiatric/Mental Health | DX: F31.13 Bipolar disorder, current episode manic without psychotic features, severe (principal); F41.9 Anxiety disorder, unspecified; H92.02 Otalgia, left ear | CPT/HCPCS: 90792; 99232 ==

== ENCOUNTER → 2025-05-11 16:36 | Outpatient (BNV) | payer MEDICAID, SELFPAY | PROVIDERS: Admitting Provider Psychiatry & Neurology Psychiatry; Visit Provider Nurse Practitioner Family | DX: H92.02 Otalgia, left ear (principal) | CPT/HCPCS: 99221 ==